=== PATIENT | male | born 1965 | race African-American/Black ===

== ENCOUNTER 2016-03-18 10:00 | Emergency (ER) | payer OTHER ==
[~2016-03-18] VITALS: Ht 172.7 cm; Wt 120.2 kg
[~2016-03-18 10:00] MED LIST: CEPH-264 PO; DOXY100T PO
[2016-03-18 10:21] VITALS: BP 140/89
[2016-03-18] MEDS ORDERED: HYDROCODONE/APAP 5/325MG TABLET. PO ONE (11:15)
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
[2016-03-18] MEDS ORDERED: HYDR-2666 PO (11:51)
== END 2016-03-18 11:55 | disposition home or self-care (01) ==
LOC: ER 10:00
DX: M25.512 Pain in left shoulder (principal); F12.10 Cannabis abuse, uncomplicated; V89.2XXA Person injured in unspecified motor-vehicle accident, traffic, initial encounter; Y93.89 Activity, other specified; Y92.89 Other specified places as the place of occurrence of the external cause; Y99.8 Other external cause status
CPT/HCPCS: 73030; 99284-25

== ENCOUNTER 2017-09-18 01:24 | Inpatient (IN) | payer OTHER ==
[2017-09-18 01:45] LABS: ADD MAN DIFF? NO
[2017-09-18 01:47] LABS: BASO # 0.1 x10^3/uL (0.0-0.2); BASO % 1 % (0-3); EOS # 0.6 x10^3/uL (0.0-0.7); EOS % 4 % (0-3); HEMATOCRIT 42.1 % (39.0-53.0); HEMOGLOBIN 14.4 g/dL (13.0-17.5); LYMPH # 3.2 x10^3/uL (1.0-4.8); LYMPH % 22 % (24-48); MEAN CORPUSCULAR HEMOGLOBIN 32 pg (25-35); MEAN CORPUSCULAR HGB CONC 34 g/dL (31-37); MEAN CORPUSCULAR VOLUME 94 fL (79-100); MONO # 0.7 x10^3/uL (0.0-1.1); MONO % 4 % (0-9); NEUT # 10.2 x10^3uL (1.8-7.7); NEUT % 69 % (31-73); PLATELET COUNT 199 x10^3/uL (140-400); RED BLOOD COUNT 4.46 x10^6/uL (4.30-5.70); RED CELL DISTRIBUTION WIDTH 12.8 % (11.5-14.5); WHITE BLOOD COUNT 14.9 x10^3/uL (4.0-11.0)
[2017-09-18 01:57] LABS: INR 1.1 (0.8-1.1); PROTHROMBIN TIME PATIENT 14.1 SEC (11.7-14.0)
[2017-09-18 02:00] LABS: ALBUMIN/GLOBULIN RATIO 0.9 (1.0-1.7); ALK PHOS 57 U/L (46-116); ALT (SGPT) 26 U/L (16-63); ANION GAP 9 (6-14); AST (SGOT) 23 U/L (15-37); BLOOD UREA NITROGEN 16 mg/dL (8-26); BUN/CREATININE RATIO 9 (6-20); CALCIUM 7.8 mg/dL (8.5-10.1); CARBON DIOXIDE 27 mmol/L (21-32); CHLORIDE 104 mmol/L (98-107); CREATININE 1.8 mg/dL (0.7-1.3); GFR 48.8; GLUCOSE 154 mg/dL (70-99); LIPASE 158 U/L (73-393); POTASSIUM 3.7 mmol/L (3.5-5.1); SODIUM 140 mmol/L (136-145); TOTAL BILIRUBIN 0.4 mg/dL (0.2-1.0); TOTAL PROTEIN 6.4 g/dL (6.4-8.2)
[2017-09-18] MEDS: IPRATRPIUM/ALBUTEROL 0.5/2.5MG 3 ML NEBU. NEB ×4 (02:03→20:42)
[2017-09-18 02:04] LABS: TROPONINI < 0.017 ng/mL (0.000-0.055)
[2017-09-18 02:08] LABS: CKMB MASS 4.9 ng/mL (0.0-3.6); CREATINE KINASE 477 U/L (39-308)
[2017-09-18 02:08] LABS: NT-PRO BNP 24 pg/mL (0-124)
[2017-09-18] MEDS: DEXAMETHASONE SOD PHOS 4 MG/ML VIAL IV (02:12)
[2017-09-18] MEDS: ASPIRIN CHEWABLE 81 MG TABLET. PO (02:12)
[2017-09-18] MEDS: PIPERACILLIN/TAZOBACTAM 4.5 GM in IV NORMAL SALINE 100ML 100 ML IV (03:07)
[2017-09-18] MEDS: IV NORMAL SALINE 1000ML BAG 1,000 ML IV ×4 (03:08→03:11)
[2017-09-18] MEDS ORDERED: ALBUTEROL SULFATE 2.5 MG/3 ML NEBU. NEB (03:30)
[2017-09-18 04:09] LABS: BILIRUBIN,URINE NEGATIVE (NEG); CLARITY,URINE CLEAR; COLOR,URINE YELLOW; GLUCOSE,URINE NEGATIVE (NEG); NITRITE,URINE NEGATIVE (NEG); PROTEIN,URINE NEGATIVE (NEG-TRACE); UROBILINOGEN,URINE 0.2 mg/dL (0.2 mg/dL)
[2017-09-18 04:14] LABS: AMORPHOUS SEDIMENT,UR PRESENT /HPF; BACTERIA,URINE 0 /HPF (0-FEW); RBC,URINE 0 /HPF (0-2); SQUAMOUS EPITHELIAL CELL,UR FEW /LPF
[2017-09-18 06:18] LABS: LACTIC ACID 1.5 mmol/L (0.4-2.0)
[2017-09-18] MEDS ORDERED: hydrALAZINE 20 MG/ML VIAL. IVP (08:30)
[2017-09-18] MEDS ORDERED: MORPHINE SULFATE 2 MG/ML DISP.SYRIN. IV (08:30)
[2017-09-18] MEDS ORDERED: ACETAMINOPHEN 325 MG TABLET. PO (08:30)
[2017-09-18] MEDS ORDERED: DOCUSATE SODIUM 100 MG CAPSULE. PO (08:30)
[2017-09-18] MEDS ORDERED: ONDANSETRON PF 4 MG/2 ML VIAL. IV (08:30)
[2017-09-18] MEDS: ALBUTEROL SULFATE 2.5 MG/3 ML NEBU. NEB (08:49)
[2017-09-18] MEDS: guaiFENesin DM 600/30MG 1 TAB TAB.ER.12H PO ×2 (11:25→21:02)
[2017-09-18] MEDS: HEPARIN PF for SUB-Q USE 5,000 UNIT/0.5 ML VIAL. SQ ×2 (14:32→21:06)
[2017-09-18] MEDS: LACTOBACILLUS RHAMNOSUS GG 1 CAPSULE. PO (21:02)
[2017-09-18] MEDS: guaiFENesin DM 200MG/20MG 10 ML SYRUP PO (21:57)
[2017-09-19 04:29] LABS: ADD MAN DIFF? NO
[2017-09-19 04:32] LABS: BASO # 0.1 x10^3/uL (0.0-0.2); BASO % 0 % (0-3); EOS # 0.1 x10^3/uL (0.0-0.7); EOS % 0 % (0-3); HEMATOCRIT 38.2 % (39.0-53.0); HEMOGLOBIN 12.9 g/dL (13.0-17.5); LYMPH # 2.3 x10^3/uL (1.0-4.8); LYMPH % 16 % (24-48); MEAN CORPUSCULAR HEMOGLOBIN 32 pg (25-35); MEAN CORPUSCULAR HGB CONC 34 g/dL (31-37); MEAN CORPUSCULAR VOLUME 95 fL (79-100); MONO # 0.7 x10^3/uL (0.0-1.1); MONO % 5 % (0-9); NEUT # 11.6 x10^3uL (1.8-7.7); NEUT % 79 % (31-73); PLATELET COUNT 185 x10^3/uL (140-400); RED BLOOD COUNT 4.02 x10^6/uL (4.30-5.70); RED CELL DISTRIBUTION WIDTH 13.3 % (11.5-14.5); WHITE BLOOD COUNT 14.7 x10^3/uL (4.0-11.0)
[2017-09-19 04:58] LABS: ALBUMIN 2.5 g/dL (3.4-5.0); ALBUMIN/GLOBULIN RATIO 0.7 (1.0-1.7); ALK PHOS 57 U/L (46-116); ALT (SGPT) 28 U/L (16-63); ANION GAP 5 (6-14); AST (SGOT) 22 U/L (15-37); BLOOD UREA NITROGEN 17 mg/dL (8-26); BUN/CREATININE RATIO 11 (6-20); CALCIUM 7.9 mg/dL (8.5-10.1); CARBON DIOXIDE 28 mmol/L (21-32); CHLORIDE 106 mmol/L (98-107); CREATININE 1.6 mg/dL (0.7-1.3); GFR 55.9; GLUCOSE 122 mg/dL (70-99); POTASSIUM 3.5 mmol/L (3.5-5.1); SODIUM 139 mmol/L (136-145); TOTAL BILIRUBIN 0.2 mg/dL (0.2-1.0)
[2017-09-19] MEDS: HEPARIN PF for SUB-Q USE 5,000 UNIT/0.5 ML VIAL. SQ ×3 (05:49→21:11)
[2017-09-19] MEDS: IPRATRPIUM/ALBUTEROL 0.5/2.5MG 3 ML NEBU. NEB ×4 (07:33→19:14)
[2017-09-19] MEDS: LACTOBACILLUS RHAMNOSUS GG 1 CAPSULE. PO ×2 (08:56→21:05)
[2017-09-19] MEDS: guaiFENesin DM 200MG/20MG 10 ML SYRUP PO (09:01)
[2017-09-19] MEDS: guaiFENesin DM 600/30MG 1 TAB TAB.ER.12H PO ×2 (09:01→21:05)
[2017-09-19] MEDS: traMADol 50 MG TABLET PO (21:06)
[2017-09-20 03:57] LABS: ADD MAN DIFF? NO
[2017-09-20 04:06] LABS: BASO % 0 % (0-3); EOS # 0.3 x10^3/uL (0.0-0.7); EOS % 3 % (0-3); HEMATOCRIT 38.9 % (39.0-53.0); HEMOGLOBIN 13.3 g/dL (13.0-17.5); LYMPH # 3.4 x10^3/uL (1.0-4.8); LYMPH % 31 % (24-48); MEAN CORPUSCULAR HEMOGLOBIN 33 pg (25-35); MEAN CORPUSCULAR HGB CONC 34 g/dL (31-37); MEAN CORPUSCULAR VOLUME 95 fL (79-100); MONO # 0.6 x10^3/uL (0.0-1.1); MONO % 6 % (0-9); NEUT # 6.6 x10^3uL (1.8-7.7); NEUT % 60 % (31-73); PLATELET COUNT 196 x10^3/uL (140-400); RED BLOOD COUNT 4.09 x10^6/uL (4.30-5.70); RED CELL DISTRIBUTION WIDTH 13.2 % (11.5-14.5)
[2017-09-20 04:27] LABS: ANION GAP 5 (6-14); BLOOD UREA NITROGEN 13 mg/dL (8-26); CALCIUM 7.9 mg/dL (8.5-10.1); CARBON DIOXIDE 30 mmol/L (21-32); CHLORIDE 105 mmol/L (98-107); CREATININE 1.7 mg/dL (0.7-1.3); GFR 52.1; GLUCOSE 104 mg/dL (70-99); POTASSIUM 3.2 mmol/L (3.5-5.1); SODIUM 140 mmol/L (136-145)
[2017-09-20] MEDS: HEPARIN PF for SUB-Q USE 5,000 UNIT/0.5 ML VIAL. SQ (06:12)
[2017-09-20] MEDS: guaiFENesin DM 200MG/20MG 10 ML SYRUP PO ×2 (06:14→08:42)
[2017-09-20] MEDS: IPRATRPIUM/ALBUTEROL 0.5/2.5MG 3 ML NEBU. NEB ×2 (07:29→11:21)
[2017-09-20] MEDS: LACTOBACILLUS RHAMNOSUS GG 1 CAPSULE. PO (08:42)
[2017-09-20] MEDS: guaiFENesin DM 600/30MG 1 TAB TAB.ER.12H PO (08:42)
== END 2017-09-20 13:30 | disposition home or self-care (01) | DRG 871 ==
LOC: ER 01:24 → 5 SOUTH 03:25
DX: A41.9 Sepsis, unspecified organism (principal); N17.0 Acute kidney failure with tubular necrosis; E44.1 Mild protein-calorie malnutrition; Z68.41 Body mass index [BMI] 40.0-44.9, adult; E66.01 Morbid (severe) obesity due to excess calories; J40 Bronchitis, not specified as acute or chronic; F12.10 Cannabis abuse, uncomplicated; N18.3 Chronic kidney disease, stage 3 (moderate); R65.20 Severe sepsis without septic shock; Z82.49 Family history of ischemic heart disease and other diseases of the circulatory system
CPT/HCPCS: 36415; 71046; 80048; 80053; 81001; 82553; 83605; 83690; 83735; 83880; 84484; 85025; 85610; 87040; 87070; 87205; 93005; 94640; 94760; J1100; J1956; J2543; J7030; J7613; J7620

== ENCOUNTER 2017-11-28 06:43 | Emergency (ER) | payer OTHER ==
[~2017-11-28] VITALS: Ht 172.7 cm; Wt 122.9 kg
[~2017-11-28 06:43] MED LIST changes: +GUAI120L35 PO; +HYDR-2758 PO; +LEVO750T31 PO; +PROAIR HFA8.5 GM INH
[2017-11-28 07:45] VITALS: BP 148/88
[2017-11-28] MEDS: ACETAMINOPHEN 500 MG TABLET PO ONE (08:09)
--- NOTE | 2017-11-28 09:17 | RAD ---
Right upper extremity venous Doppler ultrasound HISTORY: rue swelling, patient gave plasma x one week ago TECHNIQUE: Grayscale, color Doppler and spectral waveform analysis is performed. FINDINGS: Right internal jugular vein, subclavian vein, axillary vein, and brachial vein are patent. Right basilic and cephalic vein are patent. Radial and ulnar vein are patent. IMPRESSION: Negative for right upper extremity venous thrombosis. Electronically signed by: Fede Baez MD (11/28/2017 9:14 AM) [facility]
--- NOTE | 2017-11-28 09:40 | PHYS DOC ---
Past Medical History Past Medical History: No Pertinent History Past Surgical History: Other Additional Past Surgical Histo: RIGHT HAND AND LOWER BACK SX Alcohol Use: Occasionally Drug Use: Marijuana Adult General Chief Complaint Chief Complaint: UPPER EXTREMITY PAIN HPI HPI Patient is a 52 year old female presenting with bruising to the right upper extremity he gave plasma last week. He says the pain and bruising is increased is worried about blood clot Review of Systems Review of Systems Constitutional: Denies fever or chills [] Eyes: Denies change in visual acuity, redness, or eye pain [] HENT: Denies nasal congestion or sore throat [] Respiratory: Denies cough or shortness of breath [] Cardiovascular: No additional information not addressed in HPI [] GI: Denies abdominal pain, nausea, vomiting, bloody stools or diarrhea [] otherwise within normal limits, except as documented in this note. Current Medications Current Medications Current Medications Medications (Trade) Dose Ordered Sig/Kimber Start Time Stop Time Status Last Admin Dose Admin Acetaminophen (Tylenol) 1,000 mg 1X ONCE 11/28/17 08:00 11/28/17 08:01 DC 11/28/17 08:09 1,000 MG Allergies Allergies Allergies Coded Allergies Type Severity Reaction Last Updated Verified No Known Drug Allergies 09/15/13 No Physical Exam Physical Exam Constitutional: Well developed, well nourished, no acute distress, non-toxic appearance. [] HENT: Normocephalic, atraumatic, bilateral external ears normal, oropharynx moist, no oral exudates, nose normal. [] Eyes: PERRLA, EOMI, conjunctiva normal, no discharge. [] Neck: Normal range of motion, no tenderness, supple, no stridor. [] Cardiovascular:Heart rate regular rhythm, no murmur [] Pulmonary: Normal respiratory effort no increased work of breathing no obvious chest wall trauma Skin: There is ecchymosis on the right antecubital area as well as into the right bicep area sensation and motor function is intact pulses intact Back: No tenderness, no CVA tenderness. [] Extremities: No tenderness, no cyanosis, no clubbing, ROM intact, no edema. [] Neurologic: Alert and oriented X 3, normal motor function, normal sensory function, no focal deficits noted. [] Psychologic: Affect normal, judgement normal, mood normal. [] Current Patient Data Vital Signs Vital Signs Date Time Temp Pulse Resp B/P (MAP) Pulse Ox O2 Delivery O2 Flow Rate FiO2 11/28/17 07:45 98.5 80 14 148/88 (108) 98 Room Air 98.5 EKG EKG [] Radiology/Procedures Radiology/Procedures [] Impressions: performed. FINDINGS: Right internal jugular vein, subclavian vein, axillary vein, and brachial vein are patent. Right basilic and cephalic vein are patent. Radial and ulnar vein are patent. IMPRESSION: Negative for right upper extremity venous thrombosis. Electronically signed by: Fede Baez MD (11/28/2017 9:14 AM) [facility] Course & Med Decision Making Course & Med Decision Making Pertinent Labs and Imaging studies reviewed. (See chart for details) []Ecchymosis upper extremity. No DVT. Advised to follow up in 1 month for blood pressure Dragon Disclaimer Dragon Disclaimer This electronic medical record was generated, in whole or in part, using a voice recognition dictation system. Departure Departure Impression: Primary Impression: Ecchymosis Additional Impression: Elevated blood pressure reading Disposition: 01 HOME, SELF-CARE Condition: STABLE Patient Instructions: Contusion, [id number] Problem Qualifiers AMY GUERRERO MD Nov 28, 2017 09:40
== END 2017-11-28 09:33 | disposition home or self-care (01) ==
LOC: ER 06:43
DX: S50.01XA Contusion of right elbow, initial encounter (principal); R03.0 Elevated blood-pressure reading, without diagnosis of hypertension; X58.XXXA Exposure to other specified factors, initial encounter; Y93.89 Activity, other specified; Y92.89 Other specified places as the place of occurrence of the external cause; Y99.8 Other external cause status
CPT/HCPCS: 93971; 99284

== ENCOUNTER 2019-04-24 16:03 | Emergency (ER) | payer OTHER ==
[~2019-04-24] VITALS: Ht 172.7 cm; Wt 135.5 kg
[~2019-04-24 16:03] MED LIST changes: +ALBU2.5V8 INH; -HYDR-2758 PO; +HYDR-2761 PO; -PROAIR HFA8.5 GM INH
[2019-04-24 17:22] LABS: BASO # 0.1 x10^3/uL (0.0-0.2); BASO % 1 % (0-3); EOS # 0.6 x10^3/uL (0.0-0.7); EOS % 5 % (0-3); HEMATOCRIT 42.7 % (39.0-53.0); HEMOGLOBIN 14.2 g/dL (13.0-17.5); LYMPH # 3.2 x10^3/uL (1.0-4.8); LYMPH % 28 % (24-48); MEAN CORPUSCULAR HEMOGLOBIN 31 pg (25-35); MEAN CORPUSCULAR HGB CONC 33 g/dL (31-37); MEAN CORPUSCULAR VOLUME 94 fL (79-100); MONO # 0.5 x10^3/uL (0.0-1.1); MONO % 4 % (0-9); NEUT # 7.1 x10^3/uL (1.8-7.7); NEUT % 62 % (31-73); PLATELET COUNT 194 x10^3/uL (140-400); RED BLOOD COUNT 4.55 x10^6/uL (4.30-5.70); RED CELL DISTRIBUTION WIDTH 13.5 % (11.5-14.5); WHITE BLOOD COUNT 11.5 x10^3/uL (4.0-11.0)
[2019-04-24 17:39] LABS: CALCIUM 8.4 mg/dL (8.5-10.1); CREATININE 1.6 mg/dL (0.7-1.3); GFR 55.4; POTASSIUM 3.9 mmol/L (3.5-5.1)
[2019-04-24 17:43] LABS: ALBUMIN 3.7 g/dL (3.4-5.0); ALBUMIN/GLOBULIN RATIO 0.8 (1.0-1.7); C-REACTIVE PROTEIN 6.9 mg/L (0-3.3); TOTAL BILIRUBIN 0.3 mg/dL (0.2-1.0); TOTAL PROTEIN 8.2 g/dL (6.4-8.2); URIC ACID 6.5 mg/dL (3.5-7.2)
--- NOTE | 2019-04-24 17:51 | RAD ---
PROCEDURE: FOOT RIGHT 3V STUDY DATE: 04/24/2019 CLINICAL INDICATION / HISTORY: Right foot pain. TECHNIQUE: AP, lateral and oblique views of the right foot. COMPARISON: None FINDINGS: No fracture or dislocation is identified. The bone density is normal. The joint space widths are maintained, and there are no erosions to suggest an inflammatory arthropathy. No soft tissue abnormality is seen. IMPRESSION: No acute osseous abnormality. Electronically signed by: Zachary Benedict MD (04/24/2019 5:48 PM) [facility]
--- NOTE | 2019-04-24 18:25 | PHYS DOC ---
Past Medical History Past Medical History: No Pertinent History, Renal Disease (LESLEY BLOCK APRN) Past Surgical History: Other Additional Past Surgical Histo: RIGHT HAND AND LOWER BACK SX (LESLEY BLOCK APRN) Smoking Status: Never Smoker Alcohol Use: Occasionally Drug Use: Marijuana (LESLEY BLOCK APRN) Attending Signature I have participated in the care of this patient and I have reviewed and agree with all pertinent clinical information above including history, exam, and recommendations. (HAROON GUILLERMO MD) Adult General Chief Complaint Chief Complaint: LOWER EXT PAIN HPI HPI Patient is a 53 year old male with history of kidney disease who presents to the ED today complaining of 8 out of 10 right heel and right arc of the foot pain, symptoms began in January 2019. Patient reports he accidentally hit his foot on a cart at work in January but is not sure if this is the source of his pain. He is also requesting to be tested for gout. He also thinks he could have plantar fasciitis. Patient denies any fever. Reports most of the pain is on weight-bearing and intermittent. (LESLEY BLOCK APRN) Review of Systems Review of Systems Constitutional: Denies fever or chills [] Musculoskeletal: Reports right foot pain Integument: Denies rash or skin lesions [] Neurologic: Denies headache, focal weakness or sensory changes [] All other systems were reviewed and found to be within normal limits, except as documented in this note. (LESLEY BLOCK APRN) Allergies Allergies Allergies Coded Allergies Type Severity Reaction Last Updated Verified No Known Drug Allergies 09/15/13 No (HAROON GUILLERMO MD) Physical Exam Physical Exam Constitutional: Well developed, well nourished, no acute distress, non-toxic appearance. [] Skin: Warm, dry, no erythema, no rash. [] Back: No tenderness, no CVA tenderness. [] Extremities: Right foot with no obvious deformity. No edema, no ecchymosis, no tenderness, full range of motion. Neurovascular exam is intact to the right foot. +2 right pedal pulse. Neurologic: Alert and oriented X 3, normal motor function, normal sensory function, no focal deficits noted. [] Psychologic: Affect normal, judgement normal, mood normal. [] (LESLEY BLOCK APRN) Current Patient Data Vital Signs Vital Signs Date Time Temp Pulse Resp B/P (MAP) Pulse Ox O2 Delivery O2 Flow Rate FiO2 04/24/19 16:22 Room Air (HAROON GUILLERMO MD) Lab Values Laboratory Tests Test 04/24/19 17:15 White Blood Count 11.5 x10^3/uL (4.0-11.0) H Red Blood Count 4.55 x10^6/uL (4.30-5.70) Hemoglobin 14.2 g/dL (13.0-17.5) Hematocrit 42.7 % (39.0-53.0) Mean Corpuscular Volume 94 fL (79-100) Mean Corpuscular Hemoglobin 31 pg (25-35) Mean Corpuscular Hemoglobin Concent 33 g/dL (31-37) Red Cell Distribution Width 13.5 % (11.5-14.5) Platelet Count 194 x10^3/uL (140-400) Neutrophils (%) (Auto) 62 % (31-73) Lymphocytes (%) (Auto) 28 % (24-48) Monocytes (%) (Auto) 4 % (0-9) Eosinophils (%) (Auto) 5 % (0-3) H Basophils (%) (Auto) 1 % (0-3) Neutrophils # (Auto) 7.1 x10^3/uL (1.8-7.7) Lymphocytes # (Auto) 3.2 x10^3/uL (1.0-4.8) Monocytes # (Auto) 0.5 x10^3/uL (0.0-1.1) Eosinophils # (Auto) 0.6 x10^3/uL (0.0-0.7) Basophils # (Auto) 0.1 x10^3/uL (0.0-0.2) Erythrocyte Sedimentation Rate 16 (0-15) H Sodium Level 141 mmol/L (136-145) Potassium Level 3.9 mmol/L (3.5-5.1) Chloride Level 102 mmol/L (98-107) Carbon Dioxide Level 32 mmol/L (21-32) Anion Gap 7 (6-14) Blood Urea Nitrogen 15 mg/dL (8-26) Creatinine 1.6 mg/dL (0.7-1.3) H Estimated GFR (Cockcroft-Gault) 55.4 BUN/Creatinine Ratio 9 (6-20) Glucose Level 105 mg/dL (70-99) H Uric Acid 6.5 mg/dL (3.5-7.2) Calcium Level 8.4 mg/dL (8.5-10.1) L Total Bilirubin 0.3 mg/dL (0.2-1.0) Aspartate Amino Transferase (AST) 26 U/L (15-37) Alanine Aminotransferase (ALT) 37 U/L (16-63) Alkaline Phosphatase 71 U/L (46-116) C-Reactive Protein, Quantitative 6.9 mg/L (0-3.3) H Total Protein 8.2 g/dL (6.4-8.2) Albumin 3.7 g/dL (3.4-5.0) Albumin/Globulin Ratio 0.8 (1.0-1.7) L Laboratory Tests 04/24/19 17:15 Laboratory Tests 04/24/19 17:15 (HAROON GUILLERMO MD) EKG EKG [] (LESLEY BLOCK APRN) Radiology/Procedures Radiology/Procedures []PROCEDURE: FOOT RIGHT 3V PROCEDURE: FOOT RIGHT 3V STUDY DATE: 04/24/2019 CLINICAL INDICATION / HISTORY: Right foot pain. TECHNIQUE: AP, lateral and oblique views of the right foot. COMPARISON: None FINDINGS: No fracture or dislocation is identified. The bone density is normal. The joint space widths are maintained, and there are no erosions to suggest an inflammatory arthropathy. No soft tissue abnormality is seen. IMPRESSION: No acute osseous abnormality. Electronically signed by: Nikia Benedict MD (04/24/2019 5:48 PM) [facility] DICTATED and SIGNED BY: NIKIA BENEDICT MD DATE: 04/24/19 1748 (LESLEY BLOCK APRN) Course & Med Decision Making Course & Med Decision Making Pertinent Labs and Imaging studies reviewed. (See chart for details) This is a 53-year-old male patient presented to the ED today with right foot pain, patient is concerned he has plantar fasciitis or gout and was requesting to be tested. Right foot x-rays are negative for any acute findings, uric acid is normal. Creatinine 1.6, BUN is 15, creatinine is around patient's baseline. Patient was discharged to home, provided audiovisual librarian for follow-up. Discussed the importance of getting comfortable shoes and insoles. Recommended weight loss. (LESLEY BLOCK APRN) Dragon Disclaimer Dragon Disclaimer This electronic medical record was generated, in whole or in part, using a voice recognition dictation system. (LESLEY BLOCK APRN) Departure Departure Impression: Primary Impression: Pain in right foot Disposition: HOME, SELF-CARE Condition: STABLE Referrals: UNKNOWN PCP NAME (PCP) MANE AVINA DPJoshua follow up in 1-2 weeks Patient Instructions: Musculoskeletal Pain Additional Instructions: Please consider getting comfortable insoles for your shoes. Use the prescribed medications as ordered. Follow-up with your own doctor the provided audiovisual librarian in one week Scripts Gabapentin (GABAPENTIN ) 100 Mg Capsule 100 MG PO TID for NEUROGENIC PAIN, #30 CAP Prov: LESLEY BLOCK APRN 04/24/19 Diclofenac Potassium (DICLOFENAC POTASSIUM) 50 Mg Tablet 1 TAB PO BID, #20 TAB Prov: LESLEY BLOCK APRN 04/24/19 LESLEY BLOCK APRN Apr 24, 2019 18:25 HAROON GUILLERMO MD Apr 25, 2019 05:44
[2019-04-24] MEDS ORDERED: DICL50TA2 PO (18:36)
[2019-04-24] MEDS ORDERED: GABA-585 PO (18:36)
== END 2019-04-24 18:41 | disposition home or self-care (01) ==
LOC: ER 16:03
DX: M79.671 Pain in right foot (principal)
CPT/HCPCS: 36415; 73630; 80053; 84550; 85025; 85651; 86140; 99284

== ENCOUNTER 2019-10-02 07:37 | Emergency (ER) | payer OTHER ==
[~2019-10-02] VITALS: Ht 172.7 cm; Wt 127.0 kg
[~2019-10-02 07:37] MED LIST changes: +DICL50TA2 PO; +GABA-585 PO
--- NOTE | 2019-10-02 07:56 | PHYS DOC ---
Past Medical History Past Medical History: No Pertinent History, Renal Disease Past Surgical History: Other Additional Past Surgical Histo: RIGHT HAND AND LOWER BACK SX Smoking Status: Never Smoker Alcohol Use: Occasionally Drug Use: Marijuana General Adult EDM: Chief Complaint: KNEE INJURY HPI: HPI: 53-year-old AA male who denies any past medical history, presents to the ED with complaints of atraumatic right medial knee pain that started upon awakening approximately 2 days ago, states pain is worse when bearing weight. Patient cannot recall any excessive use of the knee, heavy lifting, increased physical activity or trauma to the knee. No h/o knee injury. Takes no routine meds. EMR reviewed-pt admitted for sepsis 2018, has h/o htn, ckd, morbid obesity and thc use. Pt reports he had an "extensive" workup to both heels a few years ago due to pain w/walking and "they didn't find anything." No h/o gout, pseudogout, s purs, ligament sprains or fxs. Has taken tylenol and motrin 800 with no relief. ROS: Denies any associated fever, chills, dysuria, hematuria, urethral discharge, other joint involvement, rash, new hip or ankle pain, midline back pain, abdominal pain, sensory or motor deficits. Allergies: Allergies: Allergies Coded Allergies Type Severity Reaction Last Updated Verified No Known Drug Allergies 09/15/13 No Physical Exam: PE: Constitutional: Well developed, well nourished, no acute distress, non-toxic appearance. [] obese HENT: Normocephalic, atraumatic, bilateral external ears normal, oropharynx moist, no oral exudates, nose normal. [] Eyes: EOMI, conjunctiva normal, no discharge. [] Neck: Normal range of motion, no tenderness, supple, no stridor. [] Cardiovascular:Heart rate regular rhythm, no murmur [] Lungs & Thorax: Bilateral breath sounds clear to auscultation [] Abdomen: Bowel sounds normal, soft, no tenderness, no masses, no pulsatile masses. [] Skin: Warm, dry, no erythema, no rash. [] Back: No tenderness, no CVA tenderness. [] Extremities: No tenderness, no cyanosis, no clubbing, ROM intact, no edema. [] mild suprapatellar swelling above right knee compared to left, normal ligamentous testing (lachmans/reverse lachmans/varus & valgus testing), nonreproducible medial knee pain, no pain over R patella/ankle/hip/fibular head, no unilateral leg swelling Neurologic: Alert and oriented X 3, normal motor function, normal sensory function, no focal deficits noted. [] Psychologic: Affect normal, judgement normal, mood normal. [] EKG: EKG: [] Radiology/Procedures: Radiology/Procedures: IMAGING REPORT Signed PATIENT: LITO HUGGINS ACCOUNT: [id number] : 1965 LOCATION: ER AGE: 53 SEX: M EXAM STATUS: REG ER ORD. PHYSICIAN: MARIAJOSE HENDRICKS DO REASON: right knee pain, no known injury PROCEDURE: KNEE RIGHT 3V PROCEDURE: KNEE RIGHT 3V STUDY DATE: 10/02/2019 CLINICAL INDICATION / HISTORY: Reason: right knee pain, no known injury / Spl. Instructions: / History: . TECHNIQUE: AP, lateral, and oblique views of the right knee. COMPARISON: None FINDINGS: The osseous structures are intact. The articular surfaces are smooth. The joint space is maintained. No intra-articular loose bodies. The alignment is within normal limits. The soft tissues are unremarkable. No obvious joint effusion. No radio-opaque foreign bodies are identified. IMPRESSION: Unremarkable x-ray series of the right knee. Electronically signed by: Nikia Benedict MD (10/02/2019 8:09 AM) [id number] DICTATED and SIGNED BY: NIKIA BENEDICT MD DATE: 10/02/19 0809 Impression: Concern for atraumatic right knee pain, imaging with no acute process. Conservative recommendations w/RICE, brace, and outpt ortho and pmd followup. Cannot exclude ligamentous injury. Given h/o CKD - will recommend apap otc and short dose of tramadol (pt educated on risk of addiction, advised against alcohol/driving with this medication). Life-threatening processes were considered (septic arthritis, compartment syndrome, neurovascular injury, etc.), low suspicion given patient's history and physical exam. Strict ED return precautions were given for severe pain, neurologic deficits or fever. All of his questions were answered and he was stable at time of discharge. Course & Med Decision Making: Course & Med Decision Making Pertinent Labs and Imaging studies reviewed. (See chart for details) [] Herbert Disclaimer: Dragon Disclaimer: This electronic medical record was generated, in whole or in part, using a voice recognition dictation system. Departure Departure Impression: Primary Impression: Right medial knee pain Disposition: HOME, SELF-CARE Condition: STABLE Referrals: UNKNOWN PCP NAME (PCP) AKASH CULLEN II, MD Patient Instructions: Knee Pain Scripts Tramadol Hcl (TRAMADOL HCL) 50 Mg Tablet 50 MG PO Q6HRS PRN for PAIN, #8 TAB 0 Refills Prov: MARIAJOSE HENDRICKS DO 10/02/19 Justicifation of Admission Dx: Justifications for Admission: Justification of Admission Dx: N/A MARIAJOSE HENDRICKS DO Oct 02, 2019 07:56
--- NOTE | 2019-10-02 08:12 | RAD ---
PROCEDURE: KNEE RIGHT 3V STUDY DATE: 10/02/2019 CLINICAL INDICATION / HISTORY: Reason: right knee pain, no known injury / Spl. Instructions: / History: . TECHNIQUE: AP, lateral, and oblique views of the right knee. COMPARISON: None FINDINGS: The osseous structures are intact. The articular surfaces are smooth. The joint space is maintained. No intra-articular loose bodies. The alignment is within normal limits. The soft tissues are unremarkable. No obvious joint effusion. No radio-opaque foreign bodies are identified. IMPRESSION: Unremarkable x-ray series of the right knee. Electronically signed by: Zachary Benedict MD (10/02/2019 8:09 AM) [id number]
[2019-10-02] MEDS ORDERED: TRAM50TA PO (08:25)
[2019-10-02 08:34] VITALS: BP 147/83
== END 2019-10-02 08:35 | disposition home or self-care (01) ==
LOC: ER 07:37
DX: M25.561 Pain in right knee (principal); I12.9 Hypertensive chronic kidney disease with stage 1 through stage 4 chronic kidney disease, or unspecified chronic kidney disease; N18.9 Chronic kidney disease, unspecified; E66.01 Morbid (severe) obesity due to excess calories; Z68.41 Body mass index [BMI] 40.0-44.9, adult
CPT/HCPCS: 73562; 99283